=== PATIENT | male | born 2000 | race African-American/Black ===

== ENCOUNTER 2023-04-14 21:47 | Emergency (ER) | payer OTHER ==
[~2023-04-14] VITALS: Ht 198.1 cm; Wt 93.1 kg
[2023-04-15] MEDS ORDERED: diphenhydrAMINE 50MG/ML VIAL IV STA (00:29)
[2023-04-15] MEDS ORDERED: dexAMETHasone 20MG/5ML VIAL IV ONE (00:30)
[2023-04-15] MEDS ORDERED: METOCLOPRAMIDE INJ 10MG/2ML VIAL IV ONE (00:30)
[2023-04-15] MEDS ORDERED: NS 1,000 ML IV ONE (00:30)
[2023-04-15] MEDS ORDERED: IBUP-1022 PO (01:37)
[2023-04-15 01:52] VITALS: BP 143/77; TEMP 98.5; O2SAT 98
== END 2023-04-15 01:54 | disposition home or self-care (01) ==
LOC: M ED 21:47
DX: S06.0X0A Concussion without loss of consciousness, initial encounter (principal); Z88.0 Allergy status to penicillin; Z91.010 Allergy to peanuts; Z79.1 Long term (current) use of non-steroidal anti-inflammatories (NSAID)
CPT/HCPCS: 70450; 96361; 96374; 96375; 99284; J1100; J1200; J2765